=== PATIENT | female | born 1940 | race Hispanic/Latino ===

== ENCOUNTER 2016-11-16 09:35 | Outpatient (CLI) | payer MEDICARE ==
--- NOTE | 2016-11-16 15:33 | Mammography Report ---
BILATERAL DIGITAL SCREENING MAMMOGRAM with CAD: 11/16/16 09:35:00 CLINICAL: Routine screening. COMPARISON:07/11/15 FINDINGS: There are scattered areas of fibroglandular density.Right lower inner biopsy clip. Left benign calcifications. No mass, architectural distortion or suspicious calcifications. IMPRESSION: No mammographic evidence of malignancy. BI-RADS CATEGORY: 2 -- Benign RECOMMENDATION: Routine mammographic screening in one year. COMMENT: Patient follow-up letters are generated by our [employer] application.
== END 2016-11-16 09:36 | disposition home or self-care (01) ==
LOC: SPVWC 09:35
PROVIDERS: ATTEND Internal Medicine
DX: Z12.31 Encounter for screening mammogram for malignant neoplasm of breast (principal)
CPT/HCPCS: 77067; G0202

== ENCOUNTER 2017-12-06 10:10 | Outpatient (CLI) | payer MEDICARE ==
--- NOTE | 2017-12-06 14:33 | Mammography Report ---
BILATERAL DIGITAL SCREENING MAMMOGRAM with CAD: 12/06/17 10:10:00 CLINICAL: Routine screening. COMPARISON:11/16/16 FINDINGS: The breasts are heterogeneously dense, which may obscure small masses. No mass, architectural distortion or suspicious calcifications. IMPRESSION: No mammographic evidence of malignancy. BI-RADS CATEGORY: 1 - - Negative RECOMMENDATION: Routine mammographic screening in one year. COMMENT: Patient follow-up letters are generated by our [employer] application.
== END 2017-12-06 10:11 | disposition home or self-care (01) ==
LOC: SPVWC 10:10
PROVIDERS: ATTEND Obstetrics & Gynecology
DX: Z12.31 Encounter for screening mammogram for malignant neoplasm of breast (principal)
CPT/HCPCS: 77067

== ENCOUNTER 2018-07-05 14:45 | Emergency (ER) | payer MEDICARE ==
--- NOTE | 2018-07-05 15:48 | Cat Scan Report ---
FINAL REPORT EXAM: CT HEAD/BRAIN WO CON HISTORY: Syncope TECHNIQUE: CT examination of the head without IV contrast PRIORS: None. FINDINGS: Slight mucosal thickening right ethmoid sinus. Atherosclerotic vascular calcification in the vertebral arteries and carotid siphons. No acute air-fluid level visualized in the included air-filled sinuses. Bone windows demonstrate no acute fracture. There is ventricular and sulcal prominence compatible with global cerebrocortical atrophy. The brain contains no mass, mass effect, hemorrhage, or acute infarct. There is no extra-axial intracranial bleed, brain bleed, or midline shift. IMPRESSION: No acute CVA, intracranial bleed, or brain mass
[2018-07-05 16:05] LABS: Basophils # (Auto) 0.1 K/mm3 (0.0-0.1); Basophils % (Auto) 0.5 % (0.0-1.8); Eosinophils % (Auto) 0.2 % (0.0-4.3); Hematocrit 35.4 % (30.3-42.9); Hemoglobin 11.8 gm/dl (10.1-14.3); Lymphocytes # (Auto) 0.7 K/mm3 (1.2-5.4); Lymphocytes % (Auto) 5.4 % (13.4-35.0); Mean Corpuscular HGB Conc 33 % (30-34); Mean Corpuscular Hemoglobin 30 pg (28-32); Mean Corpuscular Volume 89 fl (79-97); Monocytes # (Auto) 0.7 K/mm3 (0.0-0.8); Monocytes % (Auto) 5.5 % (0.0-7.3); Platelet Count 431 K/mm3 (140-440); Red Blood Count 3.98 M/mm3 (3.65-5.03); Red Cell Distribution Width 14.2 % (13.2-15.2)
--- NOTE | 2018-07-05 16:13 | XRay Report ---
FINAL REPORT EXAM: XR CHEST 1V AP HISTORY: Chest Pain TECHNIQUE: Frontal portable examination of the chest PRIORS: None FINDINGS: Spinal curvature with left apex mid thoracic spine and right apex upper lumbar spine. Probably calcified nodule may be a granuloma in the lateral right upper lobe. Linear scar versus atelectasis in bilateral midlung and left lower lung. Nonspecific small patchy opacity in right upper lobe just inferior to the nodule. Atherosclerotic change is present in the thoracic aorta. There is degenerative spondylosis of the thoracic spine. There is no visible pulmonary consolidation, pleural effusion, or pneumothorax. Cardiac silhouette size is normal without vascular congestion. Large lung volumes suggest hyperinflation. This may reflect pulmonary emphysema. IMPRESSION: 6.5 mm nodule may be a calcified granuloma in right upper lobe laterally. Recommend followup chest CT to exclude noncalcified pulmonary nodule Subtle small patchy opacity in right upper lobe just inferior to the nodule may be scar, atelectasis, or small focus of pneumonitis Linear scar versus atelectasis in both lungs
[2018-07-05 16:27] LABS: Alanine Aminotransferase 8 units/L (7-56); Albumin 3.7 g/dL (3.9-5); BUN/Creatinine Ratio 13; Blood Urea Nitrogen 17 mg/dL (7-17); Calcium 9.4 mg/dL (8.4-10.2); Hemolysis Index 4
--- NOTE | 2018-07-05 17:02 | Emergency Department Report ---
HPI - General Chief Complaint: Syncope Time Seen by Provider: 07/05/18 14:58 - HPI HPI: 77-year-old female presents to the emergency department via EMS after she passed out while waiting in line at the grocery store. It seems like the staff there noticed that she was about to pass out as they were able to catch her prior to her hitting the ground. She was unconscious for a short time. Since being in the emergency department she is awake and alert and has no complaints saying that she feels "fine." Prior to passing out. Patient felt dizzy and nauseated but that has since resolved. Her primary care physician is Dr. Louise. She denies any past medical history. She was given some IV fluid in route. ED Past Medical Hx - Social History Smoking Status: Never Smoker Substance Use Type: None ED Review of Systems ROS: Stated complaint: SYNCOPE Other details as noted in HPI Comment: All other systems reviewed and negative Constitutional: denies: chills, fever Eyes: denies: eye pain, eye discharge, vision change ENT: denies: ear pain, throat pain Respiratory: denies: cough, shortness of breath, wheezing Cardiovascular: syncope. denies: chest pain Gastrointestinal: nausea. denies: abdominal pain, vomiting Genitourinary: denies: urgency, dysuria, discharge Musculoskeletal: denies: back pain, joint swelling, arthralgia Skin: denies: rash, lesions Neurological: other (dizziness). denies: headache Physical Exam - Physical Exam Vital Signs: Vital Signs 07/05/18 15:02 Temperature 98.8 F Pulse Rate 86 Respiratory 15 Rate Blood Pressure 126/75 Blood Pressure 126/75 [Right] O2 Sat by Pulse 96 Oximetry Physical Exam: GENERAL: The patient is well-developed well-nourished. HENT: Normocephalic. Atraumatic. Patient has moist mucous membranes. EYES: Extraocular motions are intact. Pupils equal reactive to light bilaterally. NECK: Supple. Trachea is midline. CHEST/LUNGS: Clear to auscultation. There is no respiratory distress noted. HEART/CARDIOVASCULAR: Regular. There is no tachycardia. There is no murmur. ABDOMEN: Abdomen is soft, nontender. Patient has normal bowel sounds. There is no abdominal distention. SKIN: Skin is warm and dry. NEURO: The patient is awake, alert, and oriented. The patient is cooperative. The patient has no focal neurologic deficits. The patient has normal speech. Cranial nerves II through XII grossly intact. No pronator drift. No dysmetria. MUSCULOSKELETAL: There is no tenderness or deformity. There is no limitation range of motion. There is no evidence of acute injury. ED Course Vital Signs 07/05/18 15:02 Temperature 98.8 F Pulse Rate 86 Respiratory 15 Rate Blood Pressure 126/75 Blood Pressure 126/75 [Right] O2 Sat by Pulse 96 Oximetry ED Medical Decision Making - Lab Data Result diagrams: 07/05/18 15:44 07/05/18 15:44 - EKG Data -: EKG Interpreted by [facility] EKG shows normal: sinus rhythm, axis, intervals, QRS complexes (LVH), ST-T waves Rate: normal - EKG Data When compared to previous EKG there are: previous EKG unavailable Interpretation: LVH - Radiology Data Radiology results: report reviewed EXAM: XR CHEST 1V AP HISTORY: Chest Pain TECHNIQUE: Frontal portable examination of the chest PRIORS: None FINDINGS: Spinal curvature with left apex mid thoracic spine and right apex upper lumbar spine. Probably calcified nodule may be a granuloma in the lateral right upper lobe. Linear scar versus atelectasis in bilateral midlung and left lower lung. Nonspecific small patchy opacity in right upper lobe just inferior to the nodule. Atherosclerotic change is present in the thoracic aorta. There is degenerative spondylosis of the thoracic spine. There is no visible pulmonary consolidation, pleural effusion, or pneumothorax. Cardiac silhouette size is normal without vascular congestion. Large lung volumes suggest hyperinflation. This may reflect pulmonary emphysema. IMPRESSION: 6.5 mm nodule may be a calcified granuloma in right upper lobe laterally. Recommend followup chest CT to exclude noncalcified pulmonary nodule Subtle small patchy opacity in right upper lobe just inferior to the nodule may be scar, atelectasis, or small focus of pneumonitis Linear scar versus atelectasis in both lungs Transcribed By: BAL Dictated By: RUPAL HUTCHISON MD Electronically Authenticated By: RUPAL HUTCHISON MD Signed Date/Time: 07/05/18 1611 EXAM: CT HEAD/BRAIN WO CON HISTORY: Syncope TECHNIQUE: CT examination of the head without IV contrast PRIORS: None. FINDINGS: Slight mucosal thickening right ethmoid sinus. Atherosclerotic vascular calcification in the vertebral arteries and carotid siphons. No acute air-fluid level visualized in the included air-filled sinuses. Bone windows demonstrate no acute fracture. There is ventricular and sulcal prominence compatible with global cerebrocortical atrophy. The brain contains no mass, mass effect, hemorrhage, or acute infarct. There is no extra-axial intracranial bleed, brain bleed, or midline shift. IMPRESSION: No acute CVA, intracranial bleed, or brain mass Transcribed By: BAL Dictated By: RUPAL HUTCHISON MD Electronically Authenticated By: RUPAL HUTCHISON MD Signed Date/Time: 07/05/18 5063 - Medical Decision Making This patient presented after having a syncopal episode while at the grocery store. She was caught and never hit the ground and then awoke shortly afterwards. Since she's been in the emergency Department she's been awake and alert with no complaints and in no acute distress. On examination there is no focal, motor or sensory deficits in her cranial nerves appear intact. CT of the head did not show any bleed, shift, mass or any acute process. Chest x-ray did not show any pneumothorax, pleural effusions, pneumonia or any other acute process. Patient's labs were mostly unremarkable except for there is some renal insufficiency with a creatinine of 1.3 and a GFR of 40. The patient says that there is no previous chronic kidney disease but there are no labs here previously to compare this to. However the patient is eating and drinking, making a normal amount of urine and has no complaints of any abdominal, flank or back pains. She was seen ambulatory in the emergency department and appears stable. Vital signs stable throughout her ED course. For all these reasons patient appears safe for discharge home but has been encouraged to follow up with her primary care physician on Saturday and has been given a referral for nephrology. She understands to return to the emergency department immediately with any further episodes of passing out, sustained dizziness, development of chest pain, or with any acute distress. - Differential Diagnosis vasovagal, orthostatic hypotension, dysrhythmia, TIA Critical Care Time: No Critical care attestation.: If time is entered above; I have spent that time in minutes in the direct care of this critically ill patient, excluding procedure time. ED Disposition Clinical Impression: Renal insufficiency Syncope Qualifiers: Syncope type: unspecified Qualified Code(s): R55 - Syncope and collapse Disposition: DC- TO HOME OR SELFCARE Is pt being admited?: No Condition: Stable Instructions: Syncope (ED), Impaired Kidney Function (ED) Additional Instructions: Please follow-up with your primary care physician on Saturday without fail. I'm giving you a referral for a local machine binder stripper/kidney doctor, to follow-up regarding your current impaired kidney function. Return to the emergency department immediately with any further episodes of passing out, sustained dizziness, development of chest pain, or with any acute distress. Referrals: KATI LOUISE MD [Staff Physician] - VIOLETTE NEGRON MD [Staff Physician] - 2-3 Days Time of Disposition: 18:12
[2018-07-05 17:24] LABS: Bilirubin,Urine NEG (Negative); Blood,Urine NEG (Negative); Color,Urine Yellow (Yellow); Mucus,Urine FEW /HPF; Urobilinogen,Urine < 2.0 mg/dL (<2.0)
[2018-07-05 18:16] VITALS: BP 127/77
== END 2018-07-05 18:22 | disposition home or self-care (01) ==
LOC: ED 14:45
DX: R55 Syncope and collapse (principal)
CPT/HCPCS: 36415; 70450; 71045; 80053; 81001; 82550; 82962; 84443; 84484; 85025; 93005; 93010

== ENCOUNTER 2018-12-08 10:55 | Outpatient (CLI) | payer MEDICARE ==
--- NOTE | 2018-12-08 14:11 | Mammography Report ---
BILATERAL DIGITAL SCREENING MAMMOGRAM with CAD : 12/08/18 10:55:00 CLINICAL: Routine screening. COMPARISON:12/06/17 FINDINGS: The breasts are heterogeneously dense, which may obscure small masses.A right inner biopsy clip. No mass, architectural distortion or suspicious calcifications. IMPRESSION: No mammographic evidence of malignancy. BI-RADS CATEGORY: 2 -- Benign RECOMMENDATION: Routine mammographic screening in one year. COMMENT: Patient follow-up letters are generated by our [employer] application.
== END 2018-12-08 10:56 | disposition home or self-care (01) ==
LOC: SPVWC 10:55
PROVIDERS: ATTEND Obstetrics & Gynecology
DX: Z12.31 Encounter for screening mammogram for malignant neoplasm of breast (principal)
CPT/HCPCS: 77067

== ENCOUNTER 2021-04-14 11:04 | Outpatient (CLI) | payer MEDICARE ==
--- NOTE | 2021-04-14 17:03 | Mammography Report ---
DIGITAL SCREENING MAMMOGRAM WITH CAD, 04/14/2021 CLINICAL INFORMATION / INDICATION: Routine screening mammography. TECHNIQUE: Digital bilateral 2D mammography was obtained in the craniocaudal and mediolateral obliqu e projections. This examination was interpreted with the benefit of Computer-Aided Detection analysis . COMPARISON: Prior mammograms 12/08/2018 and 12/06/2017 FINDINGS: Breast Density: There are scattered areas of fibroglandular density. No dominant mass, suspicious calcifications, or architectural distortion in either breast. There is a stable biopsy clip in the right breast. There has been no significant change compared with the prior examinations. IMPRESSION: No mammographic evidence of malignancy. Follow up recommendation: Routine yearly BI-RADS Category 2: Benign. A "normal" or negative report should not discourage follow up or biopsy of a clinically significant f inding. A written summary of these findings will be mailed to the patient. The patient will be entered into a mammography reporting system which will generate a reminder letter for the patient's next appointmen t at the appropriate interval. The [employer] recommends yearly mammograms starting at age 40 and continuing as l arelis as a woman is in good health. Breast MRI is recommended for women with an approximate 20-25% or greater lifetime risk of breast cancer, including women with a strong family history of breast or ova heladio cancer or who have been treated for Hodgkin's disease. Signer Name: Hiwot Navarro MD Signed: 04/14/2021 4:58 PM Workstation Name: [id number]
== END 2021-04-14 11:05 | disposition home or self-care (01) ==
LOC: SPVWC 11:04
PROVIDERS: ATTEND Internal Medicine
DX: Z12.31 Encounter for screening mammogram for malignant neoplasm of breast (principal); N64.89 Other specified disorders of breast
CPT/HCPCS: 77067

== ENCOUNTER 2022-05-09 09:58 | Outpatient (CLI) | payer MEDICARE, BC ==
--- NOTE | 2022-05-10 17:25 | Mammography Report ---
DIGITAL SCREENING MAMMOGRAM WITH CAD, 05/09/2022 CLINICAL INFORMATION / INDICATION: Routine screening mammography. TECHNIQUE: Digital bilateral 2D mammography was obtained in the craniocaudal and mediolateral oblique projections. This examination was interpreted with the benefit of Computer-Aided Detection analysis. COMPARISON: 11/16/2016 through 04/14/2021. FINDINGS: Breast Density: There are scattered areas of fibroglandular density. No dominant mass, suspicious calcifications, or architectural distortion in either breast. Asymmetric breast tissue superiorly on the right is stable. There are a few benign-appearing calcific ations in the left breast. A right biopsy clip medially was also present previously. IMPRESSION: No mammographic evidence of malignancy. Follow up recommendation: Routine yearly screening mammogram. BI-RADS Category 2: BENIGN. A "normal" or negative report should not discourage follow up or biopsy of a clinically significant f inding. A written summary of these findings will be mailed to the patient. The patient will be entered into a mammography reporting system which will generate a reminder letter for the patient's next appointmen t at the appropriate interval. The [employer] recommends yearly mammograms starting at age 40 and continuing as l arelis as a woman is in good health. Breast MRI is recommended for women with an approximate 20-25% or greater lifetime risk of breast cancer, including women with a strong family history of breast or ova heladio cancer or who have been treated for Hodgkin's disease. Signer Name: Jordi Hutchinson MD Signed: 05/10/2022 5:20 PM Workstation Name: [id number]
== END 2022-05-09 09:59 | disposition home or self-care (01) ==
LOC: SPVWC 09:58
PROVIDERS: ATTEND Internal Medicine
DX: Z12.31 Encounter for screening mammogram for malignant neoplasm of breast (principal); N64.89 Other specified disorders of breast
CPT/HCPCS: 77067